=== PATIENT | male | born 1955 | race Caucasian/White ===

== ENCOUNTER 2025-05-21 12:45 | Day surgery (SDC) | payer MEDICARE, OTHER, SELFPAY ==
--- NOTE | 2025-05-21 12:10 | W.ICD.CONTRA ---
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
-
History of IA?: No
LV Function
Left ventricular function study result?: Ejection Fraction </= 35%
ACEI/ARB/ARNI
Patient already on ACEI/ARB/ARNI: Yes
Beta-Yair
Patient already on Beta Yair: Yes
[2025-05-21 13:12] VITALS: BP 123/67
[2025-05-21 13:23] VITALS: BP 123/67; BMI 36.8
--- NOTE | 2025-05-21 15:54 | ITS.CL.ICD ---
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
Implantable Cardioverter Defibrillator
Procedure Report:
ICD GENERATOR CHANGE
Date of Procedure: May 21, 2025
Primary Care Provider: GELA Goncalves
Primary Cable Swager: Dr. Kvng Garcia
Procedures:
1. Removal of dual chamber ICD generator at [facility]
2. Implant of new dual chamber ICD generator
INDICATION FOR PROCEDURE:
1. ICD at [employer] and
2. Current CHF Class 1 and patient is on guideline directed medical therapy at maximal tolerated dose for greater 3 months
3. Diagnosis of CHF initially made over 9 months ago
4. Life expectancy is greater than one year
5. Primary prevention at initial implant
6. Primary prevention at this generator change
7. Explanted device has delivered appropriate therapy: No
Indication/History: The patient is a 69-year-old man who is referred for ICD generator change due to battery at [facility]. The patient is not pacemaker dependent and all lead data is stable. He has a nonischemic cardiomyopathy with an ejection fraction
of 30 to 35% by echo in December 2023. He is well compensated. On no anticoagulation.
Antibiotic: Ancef 2 g IV
Sedation/anesthesia: Conscious sedation per anesthesia staff
Description of Procedure: 'Time out' was called and confirmed. The patient was prepped and draped in sterile fashion. Lidocaine with epinephrine was used for local anesthesia. An incision was made along the previous incision and the device and
leads were carefully dissected from the pocket. Hemostasis was obtained with electrocautery. The leads were from the device header and tested using an external analyzer. The pocket was liberally irrigated with antibiotic solution. Once
testing (see below) showed adequate and stable function, the leads were connected to the generator header and the leads and generator were placed within the pocket. The pocket was closed in the typical fashion.
SURGICAL POCKET REVISION:
Surgical (blunt dissection and ellectrocautery) pocket revision was performed. The existing device/pocket has moved [ ] cm towards the [ ] aspect. Additionally, the new pacemaker generator is different in size and shape. Also, there is heavy
amount of fibrous scarring requiring careful surgical dissection (blunt dissection and electrocautery) to safely expose the leads and generator. A partial surgical capsulectomy was performed, removing a several large portions of the fibrous capsule
to allow better placement of the leads and generator within the pocket and to reduce the risk of replacement related infection. The pocket was revised with movement of the new pocket so that the new device sits [ ] cm more towards the [ ] aspect.
EXPLANTED ICD GENERATOR: [employer] model E163 serial number: [id number] implanted: 05/14/2014
IMPLANTED ICD GENERATOR: [employer] D121: [employer] EL ICD IS-1/DF�1�DR
Existing RA lead: Guidant 4087, SN: [id number] Implanted: 02/14/02
Existing RV lead: Guidant [id number], SN: [id number] Implanted: 02/14/02
DEVICE TESTING:
Sensing: RA 6.4 mV, RV 6.6 mV
Capture: RA 1.3 V@0.4ms, RV 1.1 V@0.4ms
Ohms: RA 523, RV 467
FINAL PROGRAMMING
Forrest Pacing: DDD 70-115ppm
Tachy parameters:
VF: 200 bpm, ATP while charging, Shock
VT: 170 bpm, Monitor
Complications: None
CONCLUSIONS:
1. Successful explant of dual chamber permanent defibrillator
2. Successful implant of dual chamber permanent defibrillator
RECOMMENDATIONS:
1. Routine post-op care.
2. In-Office wound check within 7 days.
3. Office interrogation within 4 weeks.
[2025-05-21 15:56] VITALS: BP 113/67
[2025-05-21 16:10] VITALS: BP 94/65
[2025-05-21 16:25] VITALS: BP 87/54
[2025-05-21 16:31] VITALS: BP 88/63
== END 2025-05-21 17:10 | disposition home or self-care (01) ==
LOC: CATH 12:45
PROVIDERS: ATTENDING PHYSICIAN Internal Medicine Cardiovascular Disease; FAMILY PHYSICIAN Nurse Practitioner Family
DX: Z45.02 Encounter for adjustment and management of automatic implantable cardiac defibrillator (principal); I11.0 Hypertensive heart disease with heart failure; I42.8 Other cardiomyopathies; Z91.040 Latex allergy status; I50.9 Heart failure, unspecified; E78.00 Pure hypercholesterolemia, unspecified; Z79.899 Other long term (current) drug therapy; Z88.8 Allergy status to other drugs, medicaments and biological substances
CPT/HCPCS: 33263; C1721